=== PATIENT | male | born 1945 | race Caucasian/White ===

== ENCOUNTER → 2017-03-24 | Outpatient (CLI) | payer MEDICARE, OTHER ==
--- NOTE | 2017-03-24 12:59 | RADIOLOGY REPORT (SQ) ---
EXAM DESCRIPTION: HUMERUS RIGHT COMPLETED DATE/TIME: 03/24/2017 12:47 pm REASON FOR STUDY: LOCALIZED SWELLING, MASS AND LUMP, RIGHT UPPER LIMB R22.31 LOCALIZED SWELLING, MA SS AND LUMP, RIGHT UPPER LIMB COMPARISON: None. NUMBER OF VIEWS: Two views. TECHNIQUE: Two radiographic images were acquired of the right humerus to include elbow and shoulder in at least one projection. LIMITATIONS: None. FINDINGS: MINERALIZATION: Normal. BONES: Serpiginous sclerotic density seen in the proximal humerus. This could represent an area of b one infarct, sequela of infection versus underlying malignant lesion. No other bony lesions are iden tified. No acute fracture dislocation SOFT TISSUES: No obvious swelling or foreign body. OTHER: No other significant finding. IMPRESSION: Serpiginous sclerotic lesions seen in the right humeral head. Differential includes bon e infarct, sequela of prior infection, or malignant disease. Comparison with previous images could b e helpful if available. TECHNICAL DOCUMENTATION: JOB ID: [id number] [employer]- All Rights Reserved
== END ==
LOC: OD 12:31
PROVIDERS: ATTEND Family Medicine
DX: R22.31 Localized swelling, mass and lump, right upper limb (principal)

== ENCOUNTER → 2017-03-29 | Outpatient (CLI) | payer MEDICARE, OTHER ==
--- NOTE | 2017-03-30 09:52 | RADIOLOGY REPORT (SQ) ---
EXAM DESCRIPTION: MRI RT UPPER EXTREMITY COMBO COMPLETED DATE/TIME: 03/29/2017 9:46 am REASON FOR STUDY: LOCALIZED SWELLING, MASS AND LUMP, RIGHT UPPER LIMB (R22.31) R22.31 LOCALIZED SWE LLING, MASS AND LUMP, RIGHT UPPER LIMB COMPARISON: Right humerus 03/24/2017 TECHNIQUE: Multiplanar fat and fluid sensitive sequences precontrast including T1, T2 fat saturated or STIR. Post contrast T1 fat saturated sequences after IV gadolinium administration. CONTRAST TYPE AND DOSE: 15 mL Multihance. RENAL FUNCTION: GFR > 60. LIMITATIONS: None. FINDINGS: Patient initially presented with a painless palpable abnormality in the soft tissues over the upper 3rd right upper arm. A vitamin E capsule was placed over the patient's palpable abnormalit y. Deep to the vitamin-E capsule, a 2.3 x 2.7 x 1.6 cm lipoma is present, in the soft tissues at the inferior posterior aspect of the deltoid muscle. No worrisome contrast enhancement of this lipoma. Humerus films 03/24/2017 demonstrated an incidental sclerotic lesion in the right proximal humeral met aphysis with characteristic curvilinear calcifications for a chondroid lesion. Today's MRI demonstra arlette a chondroid tumor in the proximal humeral diaphysis, 5.2 cm craniocaudad by 3.5 cm transverse by 3.2 cm AP. There is mild contrast enhancement around the periphery of the lesion, without erosions o f the bony cortex. No soft tissue extension through cortical bone. This a probably benign finding, likely an incidental enchondroma, and follow-up serial plain films to exclude growth or change in 3 t o 6 months is recommended. This exam was not performed as the detailed shoulder study because of the large field of view. No gr oss rotator cuff lesion. IMPRESSION: Palpable abnormality in the right upper arm correlates with a benign appearing lipoma. 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 Serial plain film follow- up recommended. TECHNICAL DOCUMENTATION: JOB ID: [id number]- All Rights Reserved
== END ==
LOC: RAD 07:30
PROVIDERS: ATTEND Family Medicine
DX: R22.31 Localized swelling, mass and lump, right upper limb (principal)
CPT/HCPCS: 73220; A9576

== ENCOUNTER → 2019-06-09 | Outpatient (CLI) | payer MEDICARE, OTHER ==
--- NOTE | 2019-06-09 16:21 | RADIOLOGY REPORT (SQ) ---
EXAM DESCRIPTION: CHEST PA/LATERAL COMPLETED DATE/TIME: 06/09/2019 4:11 pm REASON FOR STUDY: CHILL;COUGH COMPARISON: None. EXAM PARAMETERS: NUMBER OF VIEWS: two views TECHNIQUE: Digital Frontal and Lateral radiographic views of the chest acquired. RADIATION DOSE: NA LIMITATIONS: none FINDINGS: LUNGS AND PLEURA: No opacities, masses or pneumothorax. No pleural effusion. MEDIASTINUM AND HILAR STRUCTURES: No masses or contour abnormalities. HEART AND VASCULAR STRUCTURES: Heart normal size. No evidence for failure. BONES: Chondroid containing lesion in the proximal right humerus most likely enchondroma or bone infa rct. There is been no change from prior study. HARDWARE: None in the chest. OTHER: No other significant finding. IMPRESSION: No acute findings in the chest. Stable chondroid containing lesion in the proximal righ t humerus. TECHNICAL DOCUMENTATION: JOB ID: [id number] [employer]- All Rights Reserved Reading location - IP/workstation name: [email or web address]
[2019-06-09 16:52] LABS: ABSOLUTE EOSINOPHILS # (AUTO) 0.1 10^3/uL (0.0-0.6); ABSOLUTE LYMPHOCYTES (AUTO) 2.4 10^3/uL (0.5-4.7); ABSOLUTE MONOCYTES (AUTO) 0.7 10^3/uL (0.1-1.4); ABSOLUTE NEUT (AUTO) 3.7 10^3/uL (1.7-8.2); BASOPHILS % (AUTO) 0.5 % (0-2); EOSINOPHILS % (AUTO) 0.8 % (0-6); HEMATOCRIT 48.9 % (37.9-51.0); HEMOGLOBIN 16.4 g/dL (13.5-17.0); LYMPHOCYTES % (AUTO) 34.3 % (13-45); MEAN CORPUSCULAR HEMOGLOBIN 29.5 pg (27.0-33.4); MEAN CORPUSCULAR HGB CONC 33.5 g/dL (32.0-36.0); MEAN CORPUSCULAR VOLUME 88 fl (80-97); MONOCYTES % (AUTO) 10.6 % (3-13); PLATELET COUNT 215 10^3/uL (150-450); RED BLOOD COUNT 5.56 10^6/uL (4.35-5.55); RED CELL DISTRIBUTION WIDTH 13.3 % (11.5-14.0); SEGMENTED NEUTROPHILS % (AUTO) 53.8 % (42-78); TOTAL CELLS COUNTED % (AUTO) 100 %; WHITE BLOOD COUNT 6.9 10^3/uL (4.0-10.5)
[2019-06-09 17:24] LABS: ALBUMIN 4.2 g/dL (3.5-5.0); ALKALINE PHOSPHATASE 131 U/L (38-126); ANION GAP 12 (5-19); ASPARTATE AMINO TRANSFERASE 37 U/L (17-59); BILIRUBIN,DIRECT 0.4 mg/dL (0.0-0.4); BILIRUBIN,TOTAL 0.9 mg/dL (0.2-1.3); BLOOD UREA NITROGEN 12 mg/dL (7-20); CALCIUM 9.5 mg/dL (8.4-10.2); CARBON DIOXIDE 24 mmol/L (22-30); CHLORIDE 102 mmol/L (98-107); CREATINE KINASE 40 U/L (55-170); GLUCOSE 96 mg/dL (75-110); POTASSIUM 4.1 mmol/L (3.6-5.0); TOTAL PROTEIN 7.5 g/dL (6.3-8.2)
[2019-06-09 17:27] LABS: NT PRO BNP 88 pg/mL (5-900)
[2019-06-09 17:38] LABS: ERYTHROCYTE SEDIMENTATION RATE 12 mm/hr (0-20); TROPONIN I < 0.012 ng/mL
== END ==
LOC: OD 15:20
PROVIDERS: ATTEND Family Medicine
DX: R68.83 Chills (without fever) (principal); R53.1 Weakness; R05 Cough; R06.02 Shortness of breath
CPT/HCPCS: 36415; 71046; 80053; 82550; 83880; 84484; 85025; 85652; 86308; 87040